=== PATIENT | female | born 1970 | race Caucasian/White ===

== ENCOUNTER 2017-08-21 10:30 | Emergency (ER) | payer MEDICAID ==
[~2017-08-21] VITALS: Ht 149.9 cm; Wt 63.5 kg
[2017-08-21 10:45] VITALS: BP 113/69
--- NOTE | 2017-08-21 10:51 | NUR ---
PATIENT PRESENTS TO ED WITH C/O CHEST CONGESTION, HACKING COUGH, SOB, THROAT PAIN, BACK PAIN X 2-3 WKS----WORSE AT NIGHT ADDS LEFT ELBOW SHOOTING PAIN X 1 MONTH---DENIES INJURY NO SWELLING DISCOLORATION NOTED---+2 BRACHIAL PULSE/RADIAL PULSE <3 SEC CAP REFILL BUE HX---DENIES RX----NONE; DENIES N/V/D; SKIN IS PINK/WARM/DRY; AAOX4 WITH EVEN AND STEADY GAIT; LUNGS CLEAR BL; HR EVEN AND REGULAR; PT DENIES ANY FEVER, CP, OR SOB AT THIS TIME; PATIENT STATES PAIN OF 10/10 AT THIS TIME; VSS; PATIENT AMBULATES TO OF2 WITH ; ER MD MADE AWARE OF PT STATUS.
--- NOTE | 2017-08-21 11:03 | NUR ---
DR CALHOUN EVALUATING AAO PT
[2017-08-21] MEDS ORDERED: KETOROLAC 60 MG/2 ML VIAL IM ONE (11:10)
--- NOTE | 2017-08-21 11:52 | NUR ---
ROSIO PT TAKEN OFF THE UNIT VIA WHEEL CHAIR BY [employer]
[2017-08-21 13:37] VITALS: BP 114/69
--- NOTE | 2017-08-21 13:37 | NUR ---
Patient discharged with v/s stable. Written and verbal after care instructions given and explained. Patient alert, oriented and verbalized understanding of instructions. Ambulatory with steady gait. All questions addressed prior to discharge. ID band removed. Patient advised to follow up with PMD. Rx of CODEINE PHOSPHATE/PROMETHAZINE HYDROCHLORIDE given. Patient educated on indication of medication including possible reaction and side effects. Opportunity to ask questions provided and answered.
== END 2017-08-21 13:37 | disposition home or self-care (01) ==
LOC: MED 10:30
DX: M25.522 Pain in left elbow (principal); J06.9 Acute upper respiratory infection, unspecified
CPT/HCPCS: 71045; 73080; 81002; 81025; 96372; 99284; J1885

== ENCOUNTER 2018-03-01 11:19 | Emergency (ER) | payer MEDICAID ==
[~2018-03-01] VITALS: Ht 152.4 cm; Wt 68.0 kg
--- NOTE | 2018-03-01 11:26 | NUR ---
PT AMBULATES TO BED 9
[2018-03-01 11:28] VITALS: BP 105/54
--- NOTE | 2018-03-01 11:40 | NUR ---
patient presents to ed with complaints of low back pain and tenderness. patient states she has some urgency, frequency and burning upon urination. urine collected at time of triage. HR EVEN AND REGULAR; PT DENIES ANY FEVER, CP, SOB, OR COUGH AT THIS TIME; PATIENT STATES PAIN OF 10/10 AT THIS TIME; VSS; PATIENT POSITIONED FOR COMFORT; HOB ELEVATED; BEDRAILS UP X1; BED DOWN. ER MD MADE AWARE OF PT STATUS.
[2018-03-01 12:06] VITALS: BP 105/54
[2018-03-01 12:06] LABS: APPEARANCE,URINE HAZY (CLEAR); BILIRUBIN,URINE NEGATIVE (NEGATIVE); BLOOD, URINE 3+ (NEGATIVE); COLOR,URINE YELLOW (YELLOW); LEUKOCYTE ESTERASE ,URINE 1+ (NEGATIVE); NITRITE, URINE POSITIVE (NEGATIVE); UGLUCOSE NEGATIVE (NEGATIVE)
[2018-03-01 12:17] LABS: RBC,URINE 3-10 (FEW) /HPF (0-5)
--- NOTE | 2018-03-03 19:54 | NUR ---
CALLED PT AT [phone] SPOKE TO PT FAMILY. PT WILL CALL BACK IN 30-[address] SALEH ORDER NEW MEDS BACTRIM DS 1TAB PO BID FOR 10DAYS
--- NOTE | 2018-03-03 20:39 | NUR ---
CALLED [facility] CALLED IN FOR BACTRIM DS 1TAB PO BID #[email or web address] BY ER MD DR SALEH. PT FAMILY CALLED BACK TO LET THEM KNOW RX WILL BE READY FOR THEM IN 10MINS.
== END 2018-03-01 12:04 | disposition home or self-care (01) ==
LOC: MED 11:19
DX: N12 Tubulo-interstitial nephritis, not specified as acute or chronic (principal)
CPT/HCPCS: 81001; 81025; 87086; 87186; 99284

== ENCOUNTER 2018-10-30 11:49 | Emergency (ER) | payer MEDICAID ==
[~2018-10-30] VITALS: Ht 152.4 cm; Wt 69.9 kg
[2018-10-30 12:11] VITALS: BP 126/76
--- NOTE | 2018-10-30 12:17 | NUR ---
HANDED URINE CUP FOR SAMPLE---BACK TO LOBBY AWAITS AVAILABLE ROOM FOR MD HODGES
--- NOTE | 2018-10-30 13:58 | NUR ---
REMAINS SEATED IN ER LOBBY ; DENIES ACUTE DISTRESS AT THIS TIME--ADMITS GENERAL ACHES REMAIN SAME WHEN SHE WALKED INTO ER--- CURRENTLY ON HER CELLPHONE---
--- NOTE | 2018-10-30 14:46 | NUR ---
PATIENT TO ER BED 6
--- NOTE | 2018-10-30 14:57 | NUR ---
PT BIB SELF TO THE ED WITH THE CHIEF C/O UPPER CHEST PAIN FOR A WEEK. REPORTS PRODECTIVE COUGH. NO BLOOD IN COUGH. DENIES RECENT FEVER. STATES PAIN OF 8/10 AT THIS TIME. LUNGS CLEAR. DENIES N/V/D. DENIES ANY OTHER PROBLEM. BREATHING NORMALLY. VSS. ER AWARE.
[2018-10-30] MEDS ORDERED: KETOROLAC 60 MG/2 ML VIAL IM ONE (15:25)
--- NOTE | 2018-10-30 15:45 | NUR ---
[place] AT THE BEDSIDE MONITORING PT. Addendum: 10/30/18 at 1600 by ROYA WRONG PT CHARTING
--- NOTE | 2018-10-30 16:14 | NUR ---
Patient discharged with v/s stable. Written and verbal after care instructions given and explained. Patient alert, oriented and verbalized understanding of instructions. Ambulatory with steady gait. All questions addressed prior to discharge. ID band removed. Patient advised to follow up with PMD. Rx of IBUPROFEN, TESSALON given. Patient educated on indication of medication including possible reaction and side effects. Opportunity to ask questions provided and answered.
[2018-10-30 16:15] VITALS: BP 125/65
== END 2018-10-30 16:14 | disposition home or self-care (01) ==
LOC: MED 11:49
DX: J06.9 Acute upper respiratory infection, unspecified (principal); R07.89 Other chest pain
CPT/HCPCS: 71045; 81002; 81025; 93005; 96372; 99283; J1885

== ENCOUNTER 2019-08-12 17:47 | Emergency (ER) | payer MEDICAID ==
[~2019-08-12] VITALS: Ht 160 cm; Wt 68.0 kg
--- NOTE | 2019-08-12 17:48 | NUR ---
MIKE YAN ALS TO ER BED 09
[2019-08-12 17:54] VITALS: BP 135/67
--- NOTE | 2019-08-12 19:06 | NUR ---
49 YO FEMALE BIBA CO UPPER EPIGASTRIC PAIN THAT RADIATES TO BACK. PAIN 10/10. FENTANYL 100MCG GIVEN ENROUTE TO ED. HX OF HTN. NOT CURRENTLY ON MEDS. URINE OBTAINED AND DIPPED, GIVEN TO MD. PT IS REPORTING 7/10 PAIN AT THIS TIME.
[2019-08-12 19:11] LABS: BASOPHILS # (AUTO) 0.1 K/uL (0.00-0.22); BASOPHILS % (AUTO) 0.4 % (0.0-2.0); EOSINOPHILS # (AUTO) 0.1 K/uL (0-0.4); EOSINOPHILS % (AUTO) 0.8 % (0.0-4.0); HEMATOCRIT 39.3 % (36-48); LYMPHOCYTES # (AUTO) 1.3 K/uL (2.5-16.5); LYMPHOCYTES % (AUTO) 9.8 % (20.5-51.1); MEAN CORPUSCULAR HEMOGLOBIN 29 pg (27-31); MEAN CORPUSCULAR HGB CONC 33 g/dL (33-37); MEAN CORPUSCULAR VOLUME 88.2 fL (80-94); MONOCYTES # (AUTO) 0.5 K/uL (0.8-1.0); MONOCYTES % (AUTO) 3.6 % (1.7-9.3); NEUTROPHILS # (AUTO) 11.5 K/uL (1.8-7.7); NEUTROPHILS % (AUTO) 85.4 % (42.2-75.2); PLATELET COUNT (AUTO) 252 K/uL (140-450); RED BLOOD CELL COUNT(AUTO) 4.46 MIL/uL (4.20-5.40); RED CELL DISTRIBUTION WIDTH 13.5 % (11.6-13.7); WHITE BLOOD COUNT (AUTO) 13.4 K/uL (4.8-10.8)
[2019-08-12 19:25] LABS: ANION GAP 13.6 (8-16); CREATININE 0.8 mg/dL (0.6-1.3); POTASSIUM 3.6 mmol/L (3.5-5.1)
[2019-08-12] MEDS ORDERED: KETOROLAC 30 MG/ML VIAL IVP ONE (19:30)
[2019-08-12] MEDS ORDERED: NACL 0.9% 1,000 ML IV ONE (19:30)
[2019-08-12 19:38] LABS: ALBUMIN 3.7 g/dL (3.4-5.0); TOTAL BILIRUBIN 0.3 mg/dL (0.0-1.0)
--- NOTE | 2019-08-12 20:15 | NUR ---
PT STATES DECREASE IN PAIN AFTER MEDICATION. 2/10 EPIGASTRIC PAIN.
[2019-08-12 20:40] VITALS: BP 135/67
--- NOTE | 2019-08-12 20:40 | NUR ---
Patient discharged with v/s stable. Written and verbal after care instructions given and explained. Patient alert, oriented and verbalized understanding of instructions. Ambulatory with steady gait. All questions addressed prior to discharge. ID band removed. Patient advised to follow up with PMD. Rx of NAPROXEN AND NORCO given. Patient educated on indication of medication including possible reaction and side effects. Opportunity to ask questions provided and answered.
== END 2019-08-12 20:40 | disposition home or self-care (01) ==
LOC: MED 17:47
DX: K80.20 Calculus of gallbladder without cholecystitis without obstruction (principal)
CPT/HCPCS: 36415; 76705; 80053; 81002; 83690; 85025; 96374; 99284; J1885; J7030; Q0092

== ENCOUNTER 2021-12-16 12:32 | Emergency (ER) | payer MEDICAID ==
[~2021-12-16] VITALS: Ht 162.6 cm; Wt 70.5 kg
[2021-12-16 12:44] VITALS: BP 128/78
--- NOTE | 2021-12-16 13:00 | NUR ---
Rodney mueller in ED - 12/16/21 at 1308 by [email or web address] 51Y FEMALE BIB SELF C/O 02/24 R SHOULDER PAIN X3 DAYS. DENIES TRAUMA/INJURY. PMH: [facility]
[2021-12-16] MEDS ORDERED: KETOROLAC 30 MG/ML VIAL IM ONE (13:05)
--- NOTE | 2021-12-16 13:08 | NUR ---
51Y FEMALE BIB SELF C/O 8/10 R SHOULDER PAIN X3 DAYS. DENIES TRAUMA/INJURY. DENIES N/V/D; SKIN IS PINK/WARM/DRY; AAOX4 WITH EVEN AND STEADY GAIT; LUNGS CLEAR BL; HR EVEN AND REGULAR; PT DENIES ANY FEVER, CP, SOB, OR COUGH AT THIS TIME; PATIENT STATES PAIN OF 8/10 AT THIS TIME. PATIENT POSITIONED FOR COMFORT; HOB ELEVATED; BEDRAILS UP X1; BED DOWN. ER MD MADE AWARE OF PT STATUS.
--- NOTE | 2021-12-16 13:16 | NUR ---
X RAY AT BEDSIDE.
[2021-12-16] MEDS ORDERED: NAPR-54 PO (13:58)
[2021-12-16] MEDS ORDERED: ACETAMINOPHEN EXTRA STRENGTH 500 MG TAB PO ONE (14:00)
[2021-12-16 14:04] VITALS: BP 128/78
== END 2021-12-16 14:04 | disposition home or self-care (01) ==
LOC: MED 12:32
DX: M25.511 Pain in right shoulder (principal)
CPT/HCPCS: 73030; 96372; 99283; J1885; Q0092

== ENCOUNTER 2022-10-16 16:05 | Emergency (ER) | payer MEDICAID, OTHER ==
[~2022-10-16] VITALS: Ht 152.4 cm; Wt 67.1 kg
[~2022-10-16 16:05] MED LIST: NAPR-54 PO
[2022-10-16 16:15] VITALS: BP 130/70
--- NOTE | 2022-10-16 16:22 | NUR ---
pt to lobby steady gait
[2022-10-16] MEDS ORDERED: PHEN-1877 PO (17:53)
[2022-10-16] MEDS ORDERED: NITR100C7 PO (17:53)
[2022-10-16] MEDS ORDERED: KETOROLAC 30 MG/ML VIAL IM ONE ×2 (18:00)
[2022-10-16 18:36] LABS: APPEARANCE,URINE CLEAR (CLEAR); BILIRUBIN,URINE NEGATIVE (NEGATIVE); BLOOD, URINE TRACE-I (NEGATIVE); COLOR,URINE YELLOW (YELLOW); LEUKOCYTE ESTERASE ,URINE 1+ (NEGATIVE); NITRITE, URINE NEGATIVE (NEGATIVE); PH,URINE 5.5 (5.0-9.0); UGLUCOSE NEGATIVE (NEGATIVE)
--- NOTE | 2022-10-16 18:47 | NUR ---
RESTING IN BED, MEDICATED FOR PAIN ORDERED
[2022-10-16 18:52] VITALS: BP 130/70
--- NOTE | 2022-10-16 18:52 | NUR ---
Patient discharged with v/s stable. Written and verbal after care instructions given and explained. Patient alert, oriented and verbalized understanding of instructions. Ambulatory with steady gait. All questions addressed prior to discharge. ID band removed. Patient advised to follow up with PMD. Rx of pyridium, macrobid (sent) given. Patient educated on indication of medication including possible reaction and side effects. Opportunity to ask questions provided and answered.
[2022-10-16 19:04] LABS: RBC,URINE 0-5 /HPF (0-5)
[2022-10-19] MEDS ORDERED: SULF-59 PO (15:00)
--- NOTE | 2022-10-19 19:03 | NUR ---
LATE ENTRY. RECEIVED POSITIVE URINE CULTURE. FORM GIVEN TO DR GIRALDO. NEW RX OF BACTRIM SENT TO PTS [facility]. DR GIRALDO ATTEMPTED TO CALL PT, NO ANSWER, LEFT MESSAGE. FORM PLACED IN BINDER.
== END 2022-10-16 18:52 | disposition home or self-care (01) ==
LOC: MED 16:05
DX: N39.0 Urinary tract infection, site not specified (principal); Z79.899 Other long term (current) drug therapy; Z79.1 Long term (current) use of non-steroidal anti-inflammatories (NSAID); Z79.2 Long term (current) use of antibiotics
CPT/HCPCS: 81001; 81003; 87086; 96372; 99283; J1885

== ENCOUNTER 2023-05-25 18:10 | Inpatient (IN) | payer OTHER ==
[~2023-05-25] VITALS: Ht 152.4 cm; Wt 68.5 kg
[~2023-05-25 18:10] MED LIST changes: +NITR100C7 PO; +PHEN-1877 PO; +SULF-59 PO
[2023-05-25 18:35] VITALS: BP 110/69; PULSE 70; RESP 0; TEMP 97.8; O2SAT 97
[2023-05-25] MEDS ORDERED: KETOROLAC 30 MG/ML VIAL IVP ONE (19:40)
[2023-05-25] MEDS ORDERED: NACL 0.9% 1,000 ML IV ONE (19:40)
[2023-05-25] MEDS ORDERED: ONDANSETRON 4 MG/2 ML VIAL IVP ONE (19:40)
[2023-05-25 19:55] VITALS: O2SAT 98
[2023-05-25 20:25] LABS: BASOPHILS % (AUTO) 0.7 % (0.0-2.0); EOSINOPHILS # (AUTO) 0.2 K/uL (0-0.4); EOSINOPHILS % (AUTO) 2.5 % (0.0-4.0); HEMATOCRIT 37.7 % (36-48); HEMOGLOBIN 12.7 g/dL (12.0-16.0); LYMPHOCYTES # (AUTO) 2.6 K/uL (2.5-16.5); LYMPHOCYTES % (AUTO) 40.4 % (20.5-51.1); MEAN CORPUSCULAR HEMOGLOBIN 30 pg (27-31); MEAN CORPUSCULAR HGB CONC 34 g/dL (33-37); MEAN CORPUSCULAR VOLUME 87.7 fL (80-94); MONOCYTES # (AUTO) 0.4 K/uL (0.8-1.0); MONOCYTES % (AUTO) 5.6 % (1.7-9.3); NEUTROPHILS # (AUTO) 3.2 K/uL (1.8-7.7); NEUTROPHILS % (AUTO) 50.8 % (42.2-75.2); PLATELET COUNT (AUTO) 238 K/uL (140-450); RED CELL DISTRIBUTION WIDTH 13.2 % (11.6-13.7); WHITE BLOOD COUNT (AUTO) 6.4 K/uL (4.8-10.8)
[2023-05-25 20:52] LABS: ALBUMIN 3.7 g/dL (3.4-5.0); ANION GAP 10.6 (8-16); CALCIUM 9.1 mg/dL (8.5-10.1); CARBON DIOXIDE 29.3 mmol/L (21-32); POTASSIUM 3.9 mmol/L (3.5-5.1); TOTAL BILIRUBIN 0.3 mg/dL (0.0-1.0); TOTAL PROTEIN, SERUM 7.5 g/dL (6.4-8.2)
[2023-05-25] MEDS ORDERED: ASPIRIN 81 MG TAB.CHEW PO ONE ×2 (21:10→21:30)
[2023-05-25 21:24] LABS: BILIRUBIN,URINE NEGATIVE (NEGATIVE); BLOOD, URINE NEGATIVE (NEGATIVE); COLOR,URINE YELLOW (YELLOW); LEUKOCYTE ESTERASE ,URINE 1+ (NEGATIVE); NITRITE, URINE POSITIVE (NEGATIVE); PROTEIN,URINE NEGATIVE (NEGATIVE); UGLUCOSE NEGATIVE (NEGATIVE); UROBILINOGEN,URINE 0.2 EU/dL (0.2 - 1)
[2023-05-25] MEDS ORDERED: MORPHINE SULFATE 2 MG/ML SYR IVP PRN (21:30)
[2023-05-25] MEDS ORDERED: HYDROcodone/APAP 5/325 MG 1 TAB TAB PO PRN (21:30)
[2023-05-25] MEDS ORDERED: ACETAMINOPHEN 325 MG TAB PO PRN (21:30)
[2023-05-25] MEDS ORDERED: ZOLPIDEM 5 MG TAB PO PRN (21:30)
[2023-05-25] MEDS ORDERED: LORazepam 2 MG/ML VIAL IVP PRN (21:30)
[2023-05-25] MEDS ORDERED: NITROGLYCERIN 0.4 MG TAB SL PRN (21:30)
[2023-05-25] MEDS ORDERED: ONDANSETRON 4 MG/2 ML VIAL IVP PRN (21:30)
[2023-05-25 21:34] LABS: APPEARANCE,URINE HAZY (CLEAR)
[2023-05-25 21:50] LABS: RBC,URINE NONE SEEN /HPF (0-5)
[2023-05-25 21:51] VITALS: O2SAT 98
[2023-05-25 21:51] LABS: BACTERIA,URINE FEW /HPF (None Seen); SQUAMOUS EPITHELIAL CELL,UR 4-10 (MOD) /LPF (0-3 (FEW))
[2023-05-25 22:10] VITALS: PULSE 68; RESP 18; O2SAT 99
[2023-05-25 22:26] VITALS: BP 153/67; PULSE 67; PULSE 68; RESP 18; TEMP 98.3; O2SAT 99
[2023-05-26] VITALS (8 sets, daily range): BP systolic 101–124; BP diastolic 52–63; PULSE 57–68; RESP 17–18; TEMP 96.5–97.6; O2SAT 95–99
[2023-05-26 06:43] LABS: BASOPHILS % (AUTO) 0.6 % (0.0-2.0); EOSINOPHILS # (AUTO) 0.2 K/uL (0-0.4); EOSINOPHILS % (AUTO) 3.2 % (0.0-4.0); HEMATOCRIT 36.9 % (36-48); HEMOGLOBIN 12.6 g/dL (12.0-16.0); LYMPHOCYTES # (AUTO) 2.4 K/uL (2.5-16.5); LYMPHOCYTES % (AUTO) 41.7 % (20.5-51.1); MEAN CORPUSCULAR HEMOGLOBIN 30 pg (27-31); MEAN CORPUSCULAR HGB CONC 34 g/dL (33-37); MEAN CORPUSCULAR VOLUME 88.5 fL (80-94); MONOCYTES # (AUTO) 0.4 K/uL (0.8-1.0); MONOCYTES % (AUTO) 6.3 % (1.7-9.3); NEUTROPHILS # (AUTO) 2.8 K/uL (1.8-7.7); NEUTROPHILS % (AUTO) 48.2 % (42.2-75.2); PLATELET COUNT (AUTO) 219 K/uL (140-450); RED BLOOD CELL COUNT(AUTO) 4.17 MIL/uL (4.20-5.40); RED CELL DISTRIBUTION WIDTH 13.3 % (11.6-13.7); WHITE BLOOD COUNT (AUTO) 5.8 K/uL (4.8-10.8)
[2023-05-26 06:52] LABS: ANION GAP 11.7 (8-16); CALCIUM 8.2 mg/dL (8.5-10.1); CREATININE 0.6 mg/dL (0.6-1.3); POTASSIUM 3.7 mmol/L (3.5-5.1)
[2023-05-26] MEDS: ENOXAPARIN 40 MG/0.4 ML SYR SUBQ SCH (08:14)
[2023-05-26] MEDS: DOCUSATE SODIUM 100 MG GELCAP PO SCH (08:16)
[2023-05-26] MEDS: METOPROLOL 25 MG TAB PO SCH ×2 (09:00→20:26)
[2023-05-26] MEDS: MECLIZINE 25 MG TAB PO PRN (17:12)
[2023-05-26] MEDS ORDERED: SIMVASTATIN 20 MG TAB PO SCH (21:00)
[2023-05-27 08:00] VITALS: BP 104/46; PULSE 63; RESP 17; TEMP 97; O2SAT 97
[2023-05-27] MEDS: METOPROLOL 25 MG TAB PO SCH (09:00)
[2023-05-27] MEDS: DOCUSATE SODIUM 100 MG GELCAP PO SCH (09:03)
[2023-05-27] MEDS: MECLIZINE 25 MG TAB PO PRN ×2 (09:04→15:40)
[2023-05-27] MEDS: ENOXAPARIN 40 MG/0.4 ML SYR SUBQ SCH (09:06)
[2023-05-27 10:38] LABS: BASOPHILS % (AUTO) 0.7 % (0.0-2.0); EOSINOPHILS # (AUTO) 0.2 K/uL (0-0.4); EOSINOPHILS % (AUTO) 2.9 % (0.0-4.0); HEMATOCRIT 37.6 % (36-48); HEMOGLOBIN 12.9 g/dL (12.0-16.0); LYMPHOCYTES # (AUTO) 2.2 K/uL (2.5-16.5); LYMPHOCYTES % (AUTO) 38.3 % (20.5-51.1); MEAN CORPUSCULAR HEMOGLOBIN 30 pg (27-31); MEAN CORPUSCULAR HGB CONC 34 g/dL (33-37); MEAN CORPUSCULAR VOLUME 87.2 fL (80-94); MONOCYTES # (AUTO) 0.4 K/uL (0.8-1.0); NEUTROPHILS # (AUTO) 3.1 K/uL (1.8-7.7); NEUTROPHILS % (AUTO) 52.1 % (42.2-75.2); PLATELET COUNT (AUTO) 235 K/uL (140-450); RED BLOOD CELL COUNT(AUTO) 4.32 MIL/uL (4.20-5.40); RED CELL DISTRIBUTION WIDTH 13.1 % (11.6-13.7); WHITE BLOOD COUNT (AUTO) 5.9 K/uL (4.8-10.8)
[2023-05-27 10:46] LABS: CALCIUM 8.6 mg/dL (8.5-10.1); CARBON DIOXIDE 25.7 mmol/L (21-32); CREATININE 0.6 mg/dL (0.6-1.3); POTASSIUM 3.7 mmol/L (3.5-5.1)
[2023-05-27] MEDS ORDERED: MECL-303 PO (15:12)
[2023-05-27 16:00] VITALS: BP 108/54; PULSE 98; RESP 17; TEMP 97.7; O2SAT 98
[2023-05-27 16:06] VITALS: BP 104/46; PULSE 63; RESP 17; TEMP 97
== END 2023-05-27 16:35 | disposition home or self-care (01) | DRG 111 ==
LOC: MED 18:10 → MTU 21:29 → OBSVTOIN 21:34 → MTU 21:48
PROVIDERS: ADMIT Hospitalist; ATTEND Hospitalist
DX: H81.10 Benign paroxysmal vertigo, unspecified ear (principal); I24.9 Acute ischemic heart disease, unspecified; E78.5 Hyperlipidemia, unspecified
CPT/HCPCS: 36415; 71045; 80048; 80053; 81001; 83735; 83880; 84484; 85025; 85379; 87081; 87086; 93005; 96361; 96374; 96375; 99285; J1650; J1885; J2405; J8597

== ENCOUNTER 2024-03-21 15:34 | Emergency (ER) | payer OTHER ==
[~2024-03-21] VITALS: Ht 152.4 cm; Wt 66.4 kg
[~2024-03-21 15:34] MED LIST changes: +MECL-303 PO; -NAPR-54 PO; -NITR100C7 PO; -SULF-59 PO
[2024-03-21 15:39] VITALS: BP 127/67; PULSE 77; RESP 18; TEMP 98.1; O2SAT 96
[2024-03-21] MEDS ORDERED: IBUP-2213 PO (16:56)
[2024-03-21] MEDS ORDERED: ACET500T99 PO (16:56)
[2024-03-21] MEDS ORDERED: AMOX875T3 PO (16:56)
[2024-03-21] MEDS: KETOROLAC 30 MG/ML VIAL IM ONE (17:55)
[2024-03-21 17:56] VITALS: BP 127/67; PULSE 77; RESP 18; TEMP 98.1; O2SAT 96
--- NOTE | 2024-03-21 17:57 | NUR ---
Patient discharged with v/s stable. Written and verbal after care instructions given and explained. Patient alert, oriented and verbalized understanding of instructions. Ambulatory with steady gait. All questions addressed prior to discharge. ID band removed. Patient advised to follow up with PMD. Rx of ACETAMINOPHEN, AMOXICILLIN, IBUPROFEN given. Patient educated on indication of medication including possible reaction and side effects. Opportunity to ask questions provided and answered.
== END 2024-03-21 17:57 | disposition home or self-care (01) ==
LOC: MED 15:34
DX: H66.91 Otitis media, unspecified, right ear (principal); N83.202 Unspecified ovarian cyst, left side; Z79.899 Other long term (current) drug therapy
CPT/HCPCS: 96372; 99283; J1885

== ENCOUNTER 2024-05-07 12:53 | Emergency (ER) | payer OTHER ==
[~2024-05-07] VITALS: Ht 148.6 cm; Wt 68.0 kg
[~2024-05-07 12:53] MED LIST changes: +ACET500T99 PO; +AMOX875T3 PO; +IBUP-2213 PO
[2024-05-07 13:25] VITALS: BP 138/74; PULSE 75; RESP 18; TEMP 98.2; O2SAT 98
[2024-05-07] MEDS ORDERED: CETI1TAB68 PO (13:47)
[2024-05-07] MEDS ORDERED: IBUP-1842 PO (13:47)
[2024-05-07 13:55] VITALS: BP 138/74; PULSE 75; RESP 18; TEMP 98.2; O2SAT 98
== END 2024-05-07 13:55 | disposition home or self-care (01) ==
LOC: MED 12:53
DX: J30.9 Allergic rhinitis, unspecified (principal); H92.01 Otalgia, right ear; Z79.899 Other long term (current) drug therapy
CPT/HCPCS: 99282